=== PATIENT | female | born 1975 | race Caucasian/White ===

== ENCOUNTER 2017-07-25 04:41 | Observation (INO) | payer OTHER ==
[~2017-07-25] VITALS: Ht 157.5 cm; Wt 109.3 kg
[~2017-07-25 04:41] MED LIST: AMOXICILLIN875 MG PO; AUGMENTIN 875-1 EAC2 PO; BEYAZ 28 TABLE1 EACH PO; EEMT HS TABLET1 TAB PO; NO MEDS; PENICILLIN250 MG/5 M PO; PERCOCET 5-3251 EACH PO; PERCOCET 5/3251 TAB PO; PROPRANOLOL HCL40 M2 PO; TYLENOL #312.5 ML PO; ZOFRAN4 M2 PO
[2017-07-25 05:34] LABS: PREGNANCY-SERUM NEGATIVE (NEGATIVE)
[2017-07-25 05:51] LABS: URINE BILIRUBIN NEGATIVE (NEG); URINE BLOOD LARGE (NEG); URINE GLUCOSE (UA) NEGATIVE (NEG); URINE KETONE NEGATIVE (NEG); URINE LEUKOCYTE ESTERASE POSITIVE (NEG); URINE NITRITE NEGATIVE (NEG); URINE PROTEIN MODERATE (NEG); URINE SPECIFIC GRAVITY 1.025 (1.003-1.030)
[2017-07-25 05:52] LABS: URINE APPEARANCE CLOUDY; URINE COLOR YELLOW
[2017-07-25 05:52] LABS: ANION GAP 8 mmol/L (0-20); BLOOD UREA NITROGEN 16 mg/dl (6-24); CALCIUM 8.7 mg/dl (8.5-10.5); CARBON DIOXIDE-VENOUS 26 mmol/L (22-32); CHLORIDE 109 mmol/l (96-110); CREATININE 0.79 mg/dl (0.50-1.10); GLUCOSE 118 mg/dL (70-110); POTASSIUM 4.4 mmol/L (3.7-5.1); SODIUM 139 mmol/L (135-145); eGFR VALUE FOR BLACK >90 mL/Min
[2017-07-25 06:04] LABS: URINE BACTERIA 1+; URINE RBC FULL FIELD /[HPF] (0-5)
[2017-07-25 06:08] LABS: BASO % 0.4 % (0-2); EOS % 3.6 % (0-7); EOSINOPHIL ABSOLUTE COUNT 0.3 tho/cmm (0.0-0.7); HCT-HEMATOCRIT 42.9 % (34.0-49.0); HGB-HEMOGLOBIN 13.8 gm/dl (12.0-15.5); LYMPH % 21.1 % (20-45); MCH (MEAN CORPUSCULAR HGB) 30.1 pg (28.0-32.0); MCHC MEAN CORPUSCULAR HGB CONC 32.2 % (32.0-36.0); MCV (MEAN CELL VOLUME) 93.7 fl (82.0-96.0); MEAN PLATELET VOLUME 11.7 cmc (9.4-12.4); MONOCYTE ABSOLUTE COUNT 0.7 tho/cmm (0.0-1.2); NEUTROPHIL ABSOLUTE COUNT 6.3 tho/cmm (1.6-8.0); NEUTROPHIL-AUTOMATED 6.3 tho/cmm (1.6-8.0); NEUTROPHILS % 67.9 % (40-80); PLATELET COUNT 243 tho/cmm (150-450); RED BLOOD COUNT 4.58 mil/cmm (4.00-5.20); RED CELL DISTRIBUTION WIDTH 13.1 % (12.4-16.4); WHITE BLOOD COUNT 9.3 tho/cmm (4.0-10.0)
[2017-07-25 10:29] LABS: TSH-THYROID STIMULATING HORM. 2.92 uIU/ml (0.40-3.80)
[2017-07-25] MEDS ORDERED: KEFLEX250 M2 PO (16:36)
== END 2017-07-25 17:08 ==
LOC: EDMED 04:41 → EMR2 06:57 → 5WE 06:57
PROVIDERS: Emergency Medicine; Family Medicine; ADMIT Internal Medicine
DX: N20.1 Calculus of ureter (principal); N20.0 Calculus of kidney; R00.1 Bradycardia, unspecified; N39.0 Urinary tract infection, site not specified; R11.2 Nausea with vomiting, unspecified; G43.909 Migraine, unspecified, not intractable, without status migrainosus; Z79.899 Other long term (current) drug therapy
CPT/HCPCS: J0696; J1170; J1200; J1885; J2270; J2405; J2765; J7030